=== PATIENT | male | born 1965 | race Caucasian/White ===

== ENCOUNTER → 2017-01-02 | Outpatient (CLI) | payer BC ==
[~2017-01-02] MED LIST: ALPR0.5T6 PO; ASPI-482 PO; CETI10TA22 PO; CRESTOR5 MG PO; CYCL10TA2 PO; MELO-156 PO; TAPE100T6 PO; TRAM50TA PO
--- NOTE | 2017-01-02 15:58 | KCIC ---
PROCEDURE Coronary artery calcium score HISTORY Hyperlipidemia. TECHNIQUE Computed tomography of the heart was performed with ECG gating, suspended respiration and without the administration of contrast material. Post processing was performed on the 3-D computer workstation using diastolic phase images to measure the amount of coronary vascular calcium. Scoring was acquired using the Agatston Method. PQRS: One or more the following individualized dose reduction techniques were utilized for the study: 1. Automated exposure control. 2. Adjustment of the mA and/or kV according to patient size. 3. Use of iterative reconstruction technique. COMPARISON None. FINDINGS Thorax: Cardiac size normal, no pericardial effusion. Visualized lungs are clear. Note that this CT exam is limited to the heart and adjacent structures. Coronary arteries: A tiny amount of calcium is seen in the proximal LAD on image 20 of series 4. No other coronary calcium is seen. TOTAL AGATSTON CALCIUM SCORE EQUALS 0.4. There is minimal plaque burden. This implies a low likelihood of significant luminal narrowing or obstruction or cardiovascular event. IMPRESSION Tiny focus of coronary calcium in the proximal LAD. Patient's total calcium score is 0.4. RECOMMENDATIONS Healthy lifestyle choices including cessation of smoking and eating appropriately and exercise are encouraged. Additional supporting information concerning the findings and recommendation contained within this report can be found in the consensus statements on coronary vascular calcium published by the [employer] and [employer] 5 Conference (Circulation 1996; 94: 6111-0691; J Am Khoa Cardiol 2000; 36: 326-340 and Circulation 2000; 101: 111-116). Electronically signed by: Geronimo Cabrera MD (Jan 02, 2017 15:56:56)
== END | disposition home or self-care (01) ==
LOC: KCIC CT 14:48
DX: E78.5 Hyperlipidemia, unspecified (principal)
CPT/HCPCS: 75571